=== PATIENT | female | born 1990 | race Two or more races ===

== ENCOUNTER 2017-03-15 17:18 | Emergency (ER) | payer BC, OTHER ==
[~2017-03-15] VITALS: Ht 167.6 cm; Wt 116.5 kg
[~2017-03-15 17:18] MED LIST: GABA300C16 PO; HYDR-906 PO; IBUP-1542 PO
[2017-03-15 17:21] VITALS: Ht 167.6 cm; Wt 116.5 kg
[2017-03-15] MEDS ORDERED: IBUPROFEN 800 MG TAB PO ONE (18:30)
[2017-03-15] MEDS ORDERED: IBUP800T25 PO (18:45)
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
[2017-03-15 19:17] VITALS: BP 122/68; PULSE 70; RESP 20; TEMP 98
== END 2017-03-15 18:45 | disposition home or self-care (01) ==
LOC: FTE 17:18
DX: S20.219A Contusion of unspecified front wall of thorax, initial encounter (principal); V49.50XA Passenger injured in collision with unspecified motor vehicles in traffic accident, initial encounter
CPT/HCPCS: 71010; 99283; Z7610

== ENCOUNTER 2019-03-17 23:46 | Emergency (ER) | payer BC ==
[~2019-03-17] VITALS: Ht 167.6 cm; Wt 120.2 kg
[~2019-03-17 23:46] MED LIST changes: +AZIT250T PO; +BENZ200C68 PO; +HYDR-4011 PO; -HYDR-906 PO; +IBUP800T48 PO; +PHEN177S43 MT
[2019-03-17 23:50] VITALS: BP 128/74; PULSE 84; RESP 16; Ht 167.6 cm; Wt 120.2 kg
== END 2019-03-18 01:26 | disposition home or self-care (01) ==
LOC: FTE 23:46
DX: H66.91 Otitis media, unspecified, right ear (principal)
CPT/HCPCS: 99282